=== PATIENT | male | born 1975 | race Caucasian/White ===

== ENCOUNTER 2022-08-05 12:55 | Emergency (ER) | payer BC ==
[2022-08-05] MEDS ORDERED: Tetracaine 0.5% PF 4 ML BOT ONE (14:08)
[2022-08-05] MEDS ORDERED: diphenhydrAMINE 25 MG CAP ONE (14:08)
== END 2022-08-05 14:20 | disposition home or self-care (01) ==
LOC: CSHERS 12:55
DX: S05.02XA Injury of conjunctiva and corneal abrasion without foreign body, left eye, initial encounter (principal); I10 Essential (primary) hypertension; F17.210 Nicotine dependence, cigarettes, uncomplicated; W22.8XXA Striking against or struck by other objects, initial encounter
CPT/HCPCS: 99283